=== PATIENT | female | born 1995 | race Caucasian/White ===

== ENCOUNTER → 2019-09-21 | Outpatient (CLI) | payer OTHER | END | disposition home or self-care (01) | LOC: PRENATAL 12:58 | PROVIDERS: ATTEND Obstetrics & Gynecology Maternal & Fetal Medicine | DX: O35.0XX1 Maternal care for (suspected) central nervous system malformation in fetus, fetus 1 (principal); O35.3XX1 Maternal care for (suspected) damage to fetus from viral disease in mother, fetus 1; O98.512 Other viral diseases complicating pregnancy, second trimester; O99.89 Other specified diseases and conditions complicating pregnancy, childbirth and the puerperium; Z36.89 Encounter for other specified antenatal screening; Z3A.20 20 weeks gestation of pregnancy ==

== ENCOUNTER → 2019-12-04 | Outpatient (CLI) | payer OTHER | END | disposition home or self-care (01) | LOC: PRENATAL 09:28 | PROVIDERS: ATTEND Obstetrics & Gynecology Maternal & Fetal Medicine | DX: O26.843 Uterine size-date discrepancy, third trimester (principal); Z36.89 Encounter for other specified antenatal screening; Z3A.30 30 weeks gestation of pregnancy ==

== ENCOUNTER 2019-12-24 19:08 | Emergency (ER) | payer OTHER ==
[~2019-12-24] VITALS: Ht 170.2 cm; Wt 73.0 kg
[2019-12-24] MEDS ORDERED: PRENA1 TRUE CO1 EACH (19:35)
[2019-12-24] MEDS ORDERED: SYNTHROID175 MCG (19:35)
[2019-12-24] MEDS ORDERED: ZITHROMAX500 MG PO (22:37)
[2019-12-24] MEDS ORDERED: TUSSIN100 MG/51 PO (22:37)
== END 2019-12-24 23:00 | disposition home or self-care (01) ==
LOC: ER 19:08
DX: O99.513 Diseases of the respiratory system complicating pregnancy, third trimester (principal); O98.513 Other viral diseases complicating pregnancy, third trimester; B96.0 Mycoplasma pneumoniae [M. pneumoniae] as the cause of diseases classified elsewhere; Z03.818 Encounter for observation for suspected exposure to other biological agents ruled out; Z3A.33 33 weeks gestation of pregnancy

== ENCOUNTER 2020-01-26 14:30 | Inpatient (IN) | payer OTHER ==
[~2020-01-26] VITALS: Ht 170.2 cm; Wt 77.1 kg
[~2020-01-26 14:30] MED LIST: PRENA1 TRUE CO1 EACH; SYNTHROID175 MCG; TUSSIN100 MG/51 PO; ZITHROMAX500 MG PO
== END 2020-02-05 14:43 | disposition home or self-care (01) | DRG 807 ==
LOC: LDR 02-01 06:33 → SURG-SUITE 02-02 20:46
PROVIDERS: ADMIT Student in an Organized Health Care Education/Training Program; ATTEND Student in an Organized Health Care Education/Training Program
PROC: 10E0XZZ Delivery of Products of Conception, External Approach (ICD-10-PCS; principal; 2020-02-02)
PROC: 3E033VJ Introduction of Other Hormone into Peripheral Vein, Percutaneous Approach (ICD-10-PCS; 2020-02-02)
PROC: 3E0P7VZ Introduction of Hormone into Female Reproductive, Via Natural or Artificial Opening (ICD-10-PCS; 2020-02-02)
PROC: 0W8NXZZ Division of Female Perineum, External Approach (ICD-10-PCS; 2020-02-02)
PROC: 4A1HXFZ Monitoring of Products of Conception, Cardiac Rhythm, External Approach (ICD-10-PCS; 2020-02-02)
DX: O80 Encounter for full-term uncomplicated delivery (principal); Z37.0 Single live birth; Z3A.39 39 weeks gestation of pregnancy

== ENCOUNTER 2021-06-29 15:03 | Outpatient (CLI) | payer OTHER | END 2021-06-29 16:30 | disposition home or self-care (01) | LOC: PRENATAL 15:03 | PROVIDERS: ATTEND Obstetrics & Gynecology Maternal & Fetal Medicine | DX: O36.80X0 Pregnancy with inconclusive fetal viability, not applicable or unspecified (principal); O99.280 Endocrine, nutritional and metabolic diseases complicating pregnancy, unspecified trimester; Z3A.12 12 weeks gestation of pregnancy ==

== ENCOUNTER 2021-07-22 12:18 | Emergency (ER) | payer OTHER ==
[~2021-07-22] VITALS: Ht 172.7 cm; Wt 74.8 kg
== END 2021-07-22 18:51 | disposition home or self-care (01) ==
LOC: ER 12:18
DX: O99.612 Diseases of the digestive system complicating pregnancy, second trimester (principal); Z3A.14 14 weeks gestation of pregnancy; K52.9 Noninfective gastroenteritis and colitis, unspecified

== ENCOUNTER 2021-08-24 12:52 | Outpatient (CLI) | payer OTHER | END 2021-08-24 14:15 | disposition home or self-care (01) | LOC: PRENATAL 12:52 | PROVIDERS: ATTEND Obstetrics & Gynecology Maternal & Fetal Medicine | DX: O35.0XX0 Maternal care for (suspected) central nervous system malformation in fetus, not applicable or unspecified (principal); O35.3XX0 Maternal care for (suspected) damage to fetus from viral disease in mother, not applicable or unspecified; O99.280 Endocrine, nutritional and metabolic diseases complicating pregnancy, unspecified trimester; Z3A.20 20 weeks gestation of pregnancy ==

== ENCOUNTER 2021-11-17 10:13 | Outpatient (CLI) | payer OTHER | END 2021-11-17 12:20 | disposition home or self-care (01) | LOC: PRENATAL 10:13 | PROVIDERS: ATTEND Obstetrics & Gynecology Maternal & Fetal Medicine | DX: O10.019 Pre-existing essential hypertension complicating pregnancy, unspecified trimester (principal); O09.519 Supervision of elderly primigravida, unspecified trimester; O99.210 Obesity complicating pregnancy, unspecified trimester; O36.5990 Maternal care for other known or suspected poor fetal growth, unspecified trimester, not applicable or unspecified; Z3A.36 36 weeks gestation of pregnancy ==

== ENCOUNTER 2021-12-29 13:15 | Inpatient (IN) | payer OTHER ==
[~2021-12-29] VITALS: Ht 172.7 cm; Wt 89.4 kg
[2022-01-08] MEDS ORDERED: SYNTHROID200 MCG PO (08:28)
== END 2022-01-10 17:27 | disposition home or self-care (01) | DRG 807 ==
LOC: EDSTATUS 13:15 → OB/GYN 01-08 05:52 → LDR 01-08 05:52 → OB/GYN 01-08 12:20
PROVIDERS: ADMIT Obstetrics & Gynecology; ATTEND Specialist
PROC: 10E0XZZ Delivery of Products of Conception, External Approach (ICD-10-PCS; principal; 2022-01-08)
PROC: 0KQM0ZZ Repair Perineum Muscle, Open Approach (ICD-10-PCS; 2022-01-08)
PROC: 4A1HXCZ Monitoring of Products of Conception, Cardiac Rate, External Approach (ICD-10-PCS; 2022-01-08)
DX: O70.1 Second degree perineal laceration during delivery (principal); Z37.0 Single live birth; Z3A.39 39 weeks gestation of pregnancy; Z20.822 Contact with and (suspected) exposure to COVID-19

== ENCOUNTER 2022-01-05 11:46 | Outpatient (CLI) | payer OTHER | END 2022-01-05 16:33 | disposition home or self-care (01) | LOC: OBS/DEL 11:46 | PROVIDERS: ATTEND Obstetrics & Gynecology | DX: O63.9 Long labor, unspecified (principal); Z3A.37 37 weeks gestation of pregnancy ==

== ENCOUNTER 2024-10-06 00:01 | Emergency (ER) | payer OTHER ==
[~2024-10-06] VITALS: Ht 172.7 cm; Wt 68.0 kg
[~2024-10-06 00:01] MED LIST changes: +SYNTHROID200 MCG PO
== END 2024-10-07 08:12 | disposition left against medical advice (07) ==
LOC: ER 00:01
DX: Z53.21 Procedure and treatment not carried out due to patient leaving prior to being seen by health care provider (principal)